=== PATIENT | male | born 1995 | race Caucasian/White ===

== ENCOUNTER 2018-11-05 18:48 | Emergency (ER) | payer BC, OTHER ==
[2018-11-05 19:11] VITALS: BP 115/65
--- NOTE | 2018-11-05 19:24 | UC ---
Headache HPI - HPI Summary HPI Summary: 6 days of muscle aches, neck pain/headache and fever. Fever started 3 days ago. POLLOCK is worse w/ certain movements. denies recent travel or sick contacts. did not notice a rash until he lifted his shirt during exam. able to eat/ drink fluids normally. NL urination per pt. 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 - History Of Current Complaint Chief Complaint: UCHeadache Stated Complaint: HEADACHE Time Seen by Provider: 11/05/18 18:56 Hx Obtained From: Patient Pain Intensity: 1 Pain Scale Used: 0-10 Numeric Character: Dull, Throbbing Location of Headache: Temporal Aggravating Factor(s): Position Change Allevating Factor(s): Nothing - Allergies/Home Medications Allergies/Adverse Reactions: Allergies Allergy/AdvReac Type Severity Reaction Status Date / Time No Known Allergies Allergy Unverified 11/05/18 19:14 PMH/Surg Hx/FS Hx/Imm Hx - Additional Past Medical History Additional PMH: no chronic conditions. Previously Healthy: Yes - Surgical History Surgical History: Yes Surgery Procedure, Year, and Place: Eye lid removal of benign cyst - Family History Known Family History: Positive: Non-Contributory - Social History Alcohol Use: None Substance Use Type: None Smoking Status (MU): Never Smoked Tobacco - Immunization History Most Recent Tetanus Shot: UTD Review of Systems All Other Systems Reviewed And Are Negative: Yes Constitutional: Positive: Fever. Negative: Chills Skin: Positive: Rash Eyes: Negative: Blurred Vision, Photophobia ENT: Negative: Sore Throat Respiratory: Positive: Negative Cardiovascular: Positive: Negative Gastrointestinal: Negative: Abdominal Pain, Vomiting, Diarrhea, Nausea Musculoskeletal: Positive: Myalgia Neurological: Positive: Headache. Negative: Weakness, Paresthesia, Numbness Physical Exam Triage Information Reviewed: Yes Appearance: Well-Appearing Vital Signs: Initial Vital Signs Temp 100.5 F 11/05/18 19:03 Pulse 70 11/05/18 19:03 Resp 16 11/05/18 19:03 BP 115/65 11/05/18 19:03 Pulse Ox 98 11/05/18 19:03 Vital Signs Reviewed: Yes Eyes: Positive: Conjunctiva Clear, Other: - PERRLA ENT: Positive: Pharynx normal, TMs normal, Uvula midline Dental: Negative: Cervical Lymphadenopathy Neck: Positive: Supple, Nontender, No Lymphadenopathy. Negative: Nuchal Rigidity Respiratory Exam: Normal Cardiovascular Exam: Normal Abdomen Description: Positive: Soft Musculoskeletal: Positive: No Edema Neurological: Positive: Alert, Other: - NEG BRUDZINKI'S, NEG KERNIG'S.. Negative: Fatigued Skin: Positive: Rashes - SCATTERED PATHCES OF HIVE-LIKE RASH, non pruritic. non blanching. Headache Course/Dx - Course Course Of Treatment: Presents w/ 3 days of fever and 6 days of muscle aches/pollock. With no travel or sick contacts. Aside from fever, good vitals, he is stable. Neg meningeal signs but we are monitoring this closely w/ low threshold to go to ED, we discussed this w/ mom and pt. 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 Will r/o other etiologies but at this point suspect lyme and will tx. Vision is good . - Differential Dx/Diagnosis Differential Diagnosis/HQI/PQRI: Tension Headache, Viral Syndrome, Other - lyme Provider Diagnosis: Febrile illness Discharge - Sign-Out/Discharge Documenting (check all that apply): Patient Departure All imaging exams completed and their final reports reviewed: No Studies - Discharge Plan Condition: Good Disposition: HOME Prescriptions: DOXYcycline CAP(*) [DOXYcycline 100MG CAP(*)] 100 mg PO BID 14 Days #27 cap Patient Education Materials: Fever in Adults (ED) Forms: *School Release, *Work Release Referrals: No Primary Care Phys,NOPCP [Primary Care Provider] - Additional Instructions: I will start you on the treatment for possible lyme, we will call if your results are positive. You do not have strep. Please keep your appt w/ your pcp for appropriate follow up and possible further work up. We discussed the red flags of when to go to the Emergency room and to have a low threshold. - Billing Disposition and Condition Condition: GOOD Disposition: Home - Attestation Statements Provider Attestation: Per institutional requirements, I have reviewed the chart, however, I was not consulted specifically or made aware of this patient by the midlevel provider. I did not personally evaluate, interact with , or disposition this patient.
[2018-11-05] MEDS ORDERED: DOXYcycline CAP(*) 100 MG PO ONE (19:35)
[2018-11-06 11:42] LABS: Hematocrit 40 % (42-52); Hemoglobin 14.5 g/dL (14.0-18.0); Mean Corpuscular HGB Conc 36 g/dL (31-36); Mean Corpuscular Hemoglobin 31 pg (27-31); Mean Corpuscular Volume 87 fL (80-94); Mean Platelet Volume 9.7 fL (7.4-10.4); Platelet Count 171 10^3/uL (150-450); Red Blood Count 4.67 10^6 /uL (4.18-5.48); Red Cell Distribution Width 12 % (10-15); White Blood Count 5.4 10^3/uL (3.5-10.8)
[2018-11-06 13:42] LABS: ABS Eosinophils 0.1 10^3/ul (0-0.6); ABS Lymphocytes 1.6 10^3/ul (1.0-4.8); ABS Monocytes 0.7 10^3/ul (0-0.8); Eosinophil % 1.4 %; Lymphocyte % 29.5 %; Nucleated Red Blood Cells % 0.1
--- NOTE | 2018-11-06 16:57 | UC ---
- Progress Note Progress Note: CBC with dif - wnk mono neg lyme screen + Pt on doxy await confirmatory testing ricky 11/06/18 Course/Dx - Diagnoses Provider Diagnoses: Febrile illness Discharge - Sign-Out/Discharge Documenting (check all that apply): Post-Discharge Follow Up All imaging exams completed and their final reports reviewed: No Studies - Discharge Plan Condition: Good Disposition: HOME Prescriptions: DOXYcycline CAP(*) [DOXYcycline 100MG CAP(*)] 100 mg PO BID 14 Days #27 cap Patient Education Materials: Fever in Adults (ED) Forms: *School Release, *Work Release Referrals: No Primary Care Phys,NOPCP [Primary Care Provider] - Additional Instructions: I will start you on the treatment for possible lyme, we will call if your results are positive. You do not have strep. Please keep your appt w/ your pcp for appropriate follow up and possible further work up. We discussed the red flags of when to go to the Emergency room and to have a low threshold. - Billing Disposition and Condition Condition: GOOD Disposition: Home
[2018-11-07 12:07] LABS: EBV Capsid Ag IgG Ab Positive (Negative); EBV Capsid Ag IgM Ab Positive (Negative); Epstein-Barr Nuclear Antigen Positive (Negative)
--- NOTE | 2018-11-07 14:13 | UC ---
- Progress Note Progress Note: Pt with positive IGG, IGM EBV + Ebv antigen pleae call pt - continue with doxy - awaiting confirmatory testing for lyme no contact sports until released by f/u (PCP, sports medicine) related to mono stay hydrated motrin/apap Course/Dx - Diagnoses Provider Diagnoses: Febrile illness Discharge - Sign-Out/Discharge Documenting (check all that apply): Post-Discharge Follow Up All imaging exams completed and their final reports reviewed: No Studies - Discharge Plan Condition: Good Disposition: HOME Prescriptions: DOXYcycline CAP(*) [DOXYcycline 100MG CAP(*)] 100 mg PO BID 14 Days #27 cap Patient Education Materials: Fever in Adults (ED) Forms: *School Release, *Work Release Referrals: No Primary Care Phys,NOPCP [Primary Care Provider] - Additional Instructions: I will start you on the treatment for possible lyme, we will call if your results are positive. You do not have strep. Please keep your appt w/ your pcp for appropriate follow up and possible further work up. We discussed the red flags of when to go to the Emergency room and to have a low threshold. - Billing Disposition and Condition Condition: GOOD Disposition: Home
== END 2018-11-05 20:02 | disposition home or self-care (01) ==
LOC: UCEAST 18:48
DX: R50.9 Fever, unspecified (principal)
CPT/HCPCS: 36415; 85025; 85060; 86308; 86617; 86618; 86664; 86665; 87651; 99202; A9270-GY; G0463

== ENCOUNTER 2019-05-18 04:16 | Emergency (ER) | payer OTHER ==
[2019-05-18] MEDS ORDERED: NS 0.9% 1000 ML** 1,000 ML IV ONE (04:23)
[2019-05-18] MEDS ORDERED: Ketorolac INJ* 30 MG/ML 1 ML VIAL IV ONE (04:23)
[2019-05-18] MEDS ORDERED: Ondansetron INJ* 2 MG/ML VIAL IV ONE (04:23)
--- OUTSIDE RECORDS SUMMARY | 2019-05-18 04:26 | XMS REPORT | Continuity of Care Document ---
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 Problems Active Problems Provider Date Viral disease Jim Rojas MD Onset: 11/11/2018 Infectious mononucleosis Jim Rojas MD Onset: 11/11/2018 Lyme disease Jim Rojas MD Onset: 11/11/2018 Social History Type Date Description Comments Sex Unknown ETOH Use Never used alcohol Tobacco Use Start: Unknown Light tobacco smoker (10 or fewer cigarettes/day) Smoking Status Reviewed: 05/10/19 Light tobacco smoker (10 or fewer cigarettes/day) Exercise Type/Frequency Exercises regularly Allergies, Adverse Reactions, Alerts Active Allergies Reaction Severity Comments Date NKDA 12/10/2013 Bees/Wasps Facial swelling Mild 05/10/2019 Medications Description No Active Medications Immunizations Description No Information Available Vital Signs Date Vital Result Comment 05/10/2019 9:58am Height 68 inches 5'8" Weight 138.25 lb Heart Rate 72 /min BP Systolic 126 mmHg BP Diastolic 64 mmHg Body Temperature 96.9 F O2 % BldC Oximetry 99 % BMI (Body Mass Index) 21.0 kg/m2 11/11/2018 11:03am Weight 136.00 lb Heart Rate 58 /min BP Systolic 118 mmHg BP Diastolic 68 mmHg Respiratory Rate 16 /min Body Temperature 98.5 F Results Test Acquired Date Facility Test Result H/L Range Note Lyme Disease AB 11/23/2018 [facility] IgG Immunoblot Negative Negative Immunoblot WB [address] [place], [place] [id number] [phone] IgG detected against p41,p23 kDa IgM Immunoblot Positive Abnormal Negative IgM detected against p41,p39,p23 kDa Lyme Disease Interpretation See Comment 1 HIV 4TH 11/23/2018 [facility] HIV 4th Negative Negative [place] [address] [place] [address] [phone] 1 Consistent with early infection with Borrelia burgdorferi. A new serum specimen should be submitted in 14-21 days to demonstrate seroconversion of IgG. IgM blot criteria is of diagnostic utility only during the first 4 weeks of early Lyme disease. ADDITIONAL INFORMATION Per CDC criteria, the Lyme IgG Immunoblot is interpreted as positive if IgG-class antibodies are detected to >=5 B. burgdorferi proteins, and the Lyme IgM Immunoblot is interpreted as positive if IgM-class antibodies are detected to >=2 B. burgdorferi proteins. Immunoblot patterns not meeting these criteria should not be interpreted as positive. Epitopes from certain B. burgdorferi proteins (e.g., p41) are conserved across other bacteria, which may lead to the detection of IgM- and/or IgG-class antibodies on the Lyme disease immunoblots in patients without Lyme disease. Immunoblot should only be ordered on specimens that are positive or equivocal by a FDA-licensed Lyme disease antibody screening test (e.g., EIA). Results of the Lyme IgM immunoblot should not be considered in patients with >= 30 days of symptoms. Test Performed by: [facility] [address] [place] [address] Procedures Description No Information Available Medical Devices Description No Information Available Encounters Type Date Location Provider Dx Diagnosis Office Visit 11/11/2018 [facility] Jim Rojas MD A69.20 Lyme disease, 10:40a Medicine - Suite unspecified R B27.90 Infectious mononucleosis, unspecified without complication Z11.4 Encounter for screening for human immunodeficiency virus Assessments Date Code Description Provider 05/10/2019 Z00.00 Encounter for general adult medical examination Jim Rojas MD without abnormal findings 05/10/2019 R35.0 Frequency of micturition Jim Rojas MD 05/10/2019 Z23 Encounter for immunization Jim Rojas MD 11/11/2018 A69.20 Lyme disease, unspecified Jim Rojas MD 11/11/2018 B27.90 Infectious mononucleosis, unspecified without Jim Rojas MD complication 11/11/2018 Z11.4 Encounter for screening for human immunodeficiency Jim Rojas MD virus [Hi Plan of Treatment 05/10/2019 - Jim Rojas MDZ00.00 Encounter for general adult medical examination without abnormal findingsComments:We will check some labwork as your liver function tests and sugar have been a bit high in 2013.R35.0 Frequency of [id number] Encounter for immunizationImmunizations/Injections: Influenza Virus Vaccine, Quadrivalent, Split, Preservative Free Functional Status Description No Information Available Mental Status Description No Information Available Referrals Description No Information Available
--- NOTE | 2019-05-18 04:32 | ED ---
GI/ HPI - HPI Summary HPI Summary: 24 y/o male presented to [facility] complaining of generalized sickness that began yesterday when he felt "off" at work with abd pain (11/25). The patient came home , ate, and went to bed but began vomiting at 0130 05/18/19. Vomiting has recurred roughly every 30min. Patient also notes abdominal pain, but no diarrhea and has urinated since onset of symptoms. He notes contact with a sick friend in the past few days. No abd PSHx, and a FHx of cancer. He has smoked marijuana prior to symptoms beginning. He has also used cocaine recently. - History of Current Complaint Chief Complaint: EDGeneral Stated Complaint: SICK PER PT Hx Obtained From: Patient Onset/Duration: Started Hours Ago Timing: Intermittent Current Severity: Severe Pain Intensity: 7 Associated Signs and Symptoms: Positive: Nausea, Vomiting. Negative: Diarrhea, Other: - decreased urination Alleviating Factor(s): Nothing - Allergy/Home Medications Allergies/Adverse Reactions: Allergies Allergy/AdvReac Type Severity Reaction Status Date / Time bee venom protein (honey bee) Allergy Swelling Verified 05/18/19 04:20 Home Medications: Home Medications NK [No Home Medications Reported] 05/18/19 [History Confirmed 05/18/19] PMH/Surg Hx/FS Hx/Imm Hx Endocrine/Hematology History: Denies: Hx Diabetes, Hx Thyroid Disease Cardiovascular History: Denies: Hx Hypertension Respiratory History: Denies: Hx Asthma, Hx Chronic Obstructive Pulmonary Disease (COPD) GI History: Denies: Hx Ulcer - Surgical History Surgical History: Yes Surgery Procedure, Year, and Place: Eye lid removal of benign cyst Infectious Disease History: No Infectious Disease History: Denies: Hx Hepatitis, Hx Human Immunodeficiency Virus (HIV), History Other Infectious Disease, Traveled Outside the [place] in Last 30 Days - Family History Known Family History: Negative: Cardiac Disease, Hypertension - Social History Alcohol Use: None Hx Substance Use: No Substance Use Type: Reports: None Hx Tobacco Use: No Smoking Status (MU): Never Smoked Tobacco Review of Systems Positive: Abdominal Pain, Vomiting, Nausea. Negative: Diarrhea Negative: frequency - decreased All Other Systems Reviewed And Are Negative: Yes Physical Exam - Summary Physical Exam Summary: Constitutional: Well-developed, Well-nourished, Alert. (-) Distressed Skin: Warm, Dry HENT: Normocephalic; Atraumatic Eyes: Conjunctiva normal Neck: Musculoskeletal ROM normal neck. (-) JVD, (-) Stridor, (-) Nuchal rigidity Cardio: Rhythm regular, rate normal, Heart sounds normal; Intact distal pulses; Radial pulses are 2+ and symmetric. (-) Murmur Pulmonary/Chest wall: Effort normal. (-) Respiratory distress, (-) Wheezes, (-) Rales Abd: Soft, (-) tenderness, (-) Distension, (-) Guarding, (-) Rebound Musculoskeletal: (-) Edema Lymph: (-) Cervical adenopathy Neuro: Alert, Oriented x3 Psych: Mood and affect Normal Triage Information Reviewed: Yes Vital Signs On Initial Exam: Initial Vitals Temp Pulse Resp BP Pulse Ox 99.6 F 100 16 138/83 95 05/18/19 04:17 05/18/19 04:17 05/18/19 04:17 05/18/19 04:17 05/18/19 04:17 Vital Signs Reviewed: Yes Procedures - Sedation Patient Received Moderate/Deep Sedation with Procedure: No Diagnostics - Vital Signs Vital Signs Temp Pulse Resp BP Pulse Ox 05/18/19 04:17 99.6 F 100 16 138/83 95 - Laboratory Result Diagrams: 05/18/19 04:35 05/18/19 04:35 Lab Statement: Any lab studies that have been ordered have been reviewed, and results considered in the medical decision making process. Re-Evaluation - Re-Evaluation First Eval Re-Evaluation Time: 05:20 Change: Improved - PO challenged. Feeling better. labs notable for normal WBC. GIGU Course/Dx - Course Course Of Treatment: 24-year-old male who presents acute nausea vomiting. DDx includes gastric enteritis, lower suspicion for appendicitis, GERD, renal stone , Cholecystitis, SBO, testicular torsion. Exam relatively unremarkable today, no rigidity or suggestions of acute surgical abd. Pt with negative Jaime's on exam. Will obtain cbc to assess for underlying infection. Denies testicular pain , low suspicion for pathology Will continue to monitor. Labs notable for normal WBC, tolerating PO. Suspect 2/2 marijuana use vs early gastroenterititis , lower suspicion for appendicitis given soft abdomen and no RLQ tenderness. - Diagnoses Provider Diagnoses: Nausea & vomiting Discharge ED - Sign-Out/Discharge Documenting (check all that apply): Patient Departure - dc - Discharge Plan Condition: Stable Disposition: HOME Patient Education Materials: Acute Nausea and Vomiting (ED) Referrals: Jim Rojas MD [Primary Care Provider] - Additional Instructions: You were seen in the emergency department for nausea vomiting. Please take Zofran as needed every 8 hours. Please take lots of fluids. If any studies were not completed at the time of discharge you will be called with the relevant results. Please follow up with your primary care doctor in next 2-3 days and return to emergency department for abdominal pain, inability to eat or drink, worsening or concerning symptoms. It was a pleasure taking care of you today. - Billing Disposition and Condition Condition: STABLE Disposition: Home - Attestation Statements Document Initiated by Stephanie: Yes Documenting Nomiibe: Melania Naranjo Provider For Whom Stephanie is Documenting (Include Credential): Dr. Antoinette Fritz MD Scribe Attestation: Melania Scott scribed for Dr. Antoinette Fritz MD on 05/18/19 at 0550. Scribe Documentation Reviewed: Yes Provider Attestation: The documentation as recorded by the Melania hayden accurately reflects the service I personally performed and the decisions made by me, Dr. Antoinette Fritz MD Status of Scribe Document: Viewed
[2019-05-18 04:52] LABS: ABS Eosinophils 0.1 10^3/ul (0-0.6); ABS Lymphocytes 0.3 10^3/ul (1.0-4.8); ABS Monocytes 0.4 10^3/ul (0-0.8); Eosinophil % 0.7 %; Hematocrit 47 % (42-52); Hemoglobin 16.8 g/dL (14.0-18.0); Lymphocyte % 2.8 %; Mean Corpuscular HGB Conc 36 g/dL (31-36); Mean Corpuscular Hemoglobin 31 pg (27-31); Mean Corpuscular Volume 88 fL (80-94); Mean Platelet Volume 8.8 fL (7.4-10.4); Nucleated Red Blood Cells % 0.1; Platelet Count 149 10^3/uL (150-450); Red Blood Count 5.37 10^6 /uL (4.18-5.48); Red Cell Distribution Width 13 % (10-15); White Blood Count 9.8 10^3/uL (3.5-10.8)
[2019-05-18 04:59] LABS: Albumin 4.7 g/dL (3.2-5.2); Albumin/Globulin Ratio 1.8 (1-3); BUN/Creatinine Ratio 21.9 (8-20); Calcium 9.7 mg/dL (8.6-10.3); EGFR African American 106.9 (>60); EGFR Non-African American 88.3 (>60); Globulin 2.6 g/dL (2-4); Potassium 3.9 mmol/L (3.5-5.0); Total Bilirubin 1.6 mg/dL (0.2-1.0); Total Protein 7.3 g/dL (6.4-8.9)
[2019-05-18] MEDS ORDERED: Ondansetron ODT TAB* 4 MG PO ONE (05:07)
[2019-05-18 06:04] VITALS: BP 111/56
== END 2019-05-18 06:02 | disposition home or self-care (01) ==
LOC: ED 04:16
DX: R11.2 Nausea with vomiting, unspecified (principal)
CPT/HCPCS: 36415; 80053; 85025; 96361; 96374; 96375; 99283; A9270-GY; J1885; J2405

== ENCOUNTER 2019-06-30 05:26 | Emergency (ER) | payer OTHER ==
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
[2019-06-30 06:12] LABS: Urine Appearance Clear; Urine Bilirubin Negative (Negative); Urine Blood Negative (Negative); Urine Color Colorless; Urine Glucose Negative (Negative); Urine Ketones Negative (Negative); Urine Nitrite Negative (Negative); Urine Protein Negative (Negative); Urine Specific Gravity 1.001 (1.010-1.030); Urine Urobilinogen Negative (Negative)
[2019-06-30 06:20] LABS: ABS Lymphocytes 1.5 10^3/ul (1.0-4.8); ABS Monocytes 0.3 10^3/ul (0-0.8); ABS Neutrophils 2.8 10^3/ul (1.5-7.7); Eosinophil % 0.8 %; Hematocrit 48 % (42-52); Hemoglobin 17.3 g/dL (14.0-18.0); Lymphocyte % 32.2 %; Mean Corpuscular HGB Conc 36 g/dL (31-36); Mean Corpuscular Hemoglobin 32 pg (27-31); Mean Corpuscular Volume 87 fL (80-94); Mean Platelet Volume 8.7 fL (7.4-10.4); Nucleated Red Blood Cells % 0.1; Platelet Count 209 10^3/uL (150-450); Red Blood Count 5.44 10^6 /uL (4.18-5.48); Red Cell Distribution Width 12 % (10-15); White Blood Count 4.7 10^3/uL (3.5-10.8)
[2019-06-30 06:31] LABS: ALT 27 U/L (7-52); AST 23 U/L (13-39); Albumin 5.2 g/dL (3.2-5.2); Albumin/Globulin Ratio 1.9 (1-3); Alkaline Phosphatase 85 U/L (34-104); Anion Gap 10 mmol/L (2-11); BUN/Creatinine Ratio 10.3 (8-20); Blood Urea Nitrogen 10 mg/dL (6-24); CO2 Carbon Dioxide 26 mmol/L (22-32); Calcium 9.7 mg/dL (8.6-10.3); Chloride 106 mmol/L (101-111); EGFR African American 117.1 (>60); EGFR Non-African American 96.8 (>60); Globulin 2.7 g/dL (2-4); Glucose 92 mg/dL (70-100); Potassium 3.9 mmol/L (3.5-5.0); Sodium 142 mmol/L (135-145); Total Protein 7.9 g/dL (6.4-8.9)
[2019-06-30 06:35] LABS: Urine Benzodiazepine Screen None Detected (None Detect); Urine Opiates Screen None Detected (None Detect)
[2019-06-30 06:43] LABS: Acetaminophen < 15 mcg/mL; Alcohol 177 mg/dL (<10); Salicylate < 2.50 mg/dL (<30)
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
--- OUTSIDE RECORDS SUMMARY | 2019-06-30 08:58 | XMS REPORT | Continuity of Care Document ---
:1995 External Reference #:[id number] Author Name Jim Rojas MD (transmitted by agent of provider Cara Dove) Address [address] [place] [id number] Care Team Providers Name Role Phone Jim Rojas MD - Hospitalist Care Team Information Department Head [phone] Problems Active Problems Provider Date Dysuria Jim Rojas MD Onset: 06/07/2019 Nausea and vomiting Jim Rojas MD Onset: 06/07/2019 Abdominal pain Jim Rojas MD Onset: 06/07/2019 Venereal disease screening Jim Rojas MD Onset: 06/07/2019 Suspected diabetes mellitus Jim Rojas MD Onset: 05/10/2019 Immunization Jim Rojas MD Onset: 05/10/2019 Adult health examination Jim Rojas MD Onset: 05/10/2019 Viral disease Jim Rojas MD Onset: 11/11/2018 Infectious mononucleosis Jim Rojas MD Onset: 11/11/2018 Lyme disease Jim Rojas MD Onset: 11/11/2018 Social History Type Date Description Comments Sex Unknown ETOH Use Never used alcohol Tobacco Use Start: Unknown Light tobacco smoker (10 or fewer cigarettes/day) Smoking Status Reviewed: 06/07/19 Light tobacco smoker (10 or fewer cigarettes/day) Exercise Type/Frequency Exercises regularly Allergies, Adverse Reactions, Alerts Active Allergies Reaction Severity Comments Date NKDA 12/10/2013 Bees/Wasps Facial swelling Mild 05/10/2019 Medications Active Medications SIG Qnty Indications Ordering Provider Date Tylenol 8 Hour take every 6 hours Unknown 650mg as needed for Tablets ER pain, headache or fever History Medications No Active Medications Unknown 05/10/2019 - 06/07/2019 Immunizations CPT Code Status Date Vaccine Lot # [id number] Given 06/07/2019 Influenza Virus Vaccine, Quadrivalent, Split, [id number] Preservative Free Vital Signs Date Vital Result Comment 06/07/2019 10:11am Height 68 inches 5'8" Weight 137.38 lb Heart Rate 60 /min BP Systolic 100 mmHg BP Diastolic 50 mmHg Body Temperature 97.2 F O2 % BldC Oximetry 98 % BMI (Body Mass Index) 20.9 kg/m2 05/10/2019 9:58am Height 68 inches 5'8" Weight 138.25 lb Heart Rate 72 /min BP Systolic 126 mmHg BP Diastolic 64 mmHg Body Temperature 96.9 F O2 % BldC Oximetry 99 % BMI (Body Mass Index) 21.0 kg/m2 Results Test Acquired Date Facility Test Result H/L Range Note Comp Metabolic 05/18/2019 [facility] Sodium 137 mmol/L Normal 135-[address] [place] [address] [phone] Potassium 3.9 mmol/L Normal 3.5-5.0 Chloride 102 mmol/L Normal 101-111 Co2 Carbon Dioxide 25 mmol/L Normal 22-32 Anion Gap 10 mmol/L Normal 2-11 Glucose 100 mg/dL Normal 70-100 Blood Urea Nitrogen 23 mg/dL Normal 6-24 Creatinine 1.05 mg/dL Normal 0.67-1.17 BUN/Creatinine Ratio 21.9 High 8-20 Calcium 9.7 mg/dL Normal 8.6-10.3 Total Protein 7.3 g/dL Normal 6.4-8.9 Albumin 4.7 g/dL Normal 3.2-5.2 Globulin 2.6 g/dL Normal 2-4 Albumin/Globulin Ratio 1.8 Normal 1-3 Total Bilirubin 1.60 mg/dL High 0.2-1.0 Alkaline Phosphatase 76 U/L Normal 34-104 Alt 11 U/L Normal 7-52 Ast 18 U/L Normal 13-39 Egfr Non- 88.3 >60 Egfr 106.9 >60 1 CBC Auto 05/18/2019 [facility] White Blood 9.8 10^3/uL Normal 3.5-10.[address] [place] [address] [phone] Red Blood Count 5.37 10^6/uL Normal 4.18-5.48 Hemoglobin 16.8 g/dL Normal 14.0-18.0 Hematocrit 47 % Normal 42-52 Mean Corpuscular Volume 88 fL Normal 80-94 Mean Corpuscular Hemoglobin 31 pg Normal 27-31 Mean Corpuscular HGB Conc 36 g/dL Normal 31-36 Red Cell Distribution Width 13 % Normal 10-15 Platelet Count 149 10^3/uL Low 150-450 Mean Platelet Volume 8.8 fL Normal 7.4-10.4 Abs Neutrophils 9.0 10^3/uL High 1.5-7.7 Abs Lymphocytes 0.3 10^3/uL Low 1.0-4.8 Abs Monocytes 0.4 10^3/uL Normal 0-0.8 Abs Eosinophils 0.1 10^3/uL Normal 0-0.6 Abs Basophils 0.0 10^3/uL Normal 0-0.2 Abs Nucleated RBC 0.0 10^3/uL Granulocyte % 91.9 % Lymphocyte % 2.8 % Monocyte % 4.5 % Eosinophil % 0.7 % Basophil % 0.1 % Nucleated Red Blood Cells % 0.1 1 Because ethnic data is not always readily available, this report includes an eGFR for both -Americans and non- Americans. The National Kidney Disease Education Program (NKDEP) does not endorse the use of the MDRD equation for patients that are not between the ages of 18 and 70, are , have extremes of body size, muscle mass, or nutritional status, or are non- or non-. According to the National Kidney Foundation, irrespective of diagnosis, the stage of the disease is based on the level of kidney function: Stage Description GFR(mL/min/1.73 m(2)) 1 Kidney damage with normal or decreased GFR 90 2 Kidney damage with mild decrease in GFR 60-89 3 Moderate decrease in GFR 30-59 4 Severe decrease in GFR 15-29 5 Kidney failure <15 (or dialysis) Procedures Description No Information Available Medical Devices Description No Information Available Encounters Type Date Location Provider Dx Diagnosis Office Visit 05/10/2019 [facility] Internal Jim Rojas MD Z00.00 Encntr for general 9:40a Medicine - Suite R adult medical exam w/o abnormal findings Z23 Encounter for immunization Z13.1 Encounter for screening for diabetes mellitus Assessments Date Code Description Provider 06/07/2019 Z11.3 Encounter for screening for infections with a Jim Rojas MD predominantly sexual mode of transmission 06/07/2019 R30.0 Dysuria Jim Rojas MD 06/07/2019 R10.9 Unspecified abdominal pain Jim Rojas MD 06/07/2019 R11.2 Nausea with vomiting, unspecified Jim Rojas MD 06/07/2019 Z13.1 Encounter for screening for diabetes mellitus Jim Rojas MD 06/07/2019 Z23 Encounter for immunization Jim Rojas MD 05/10/2019 Z00.00 Encounter for general adult medical examination Jim Rojsa MD without abnormal findings 05/10/2019 Z23 Encounter for immunization Jim Rojas MD 05/10/2019 Z13.1 Encounter for screening for diabetes mellitus Jim Rojas MD Plan of Treatment 06/07/2019 - Jim Rojas MDZ11.3 Encounter for screening for infections with a predominantly sexual mode of transmissionNew Labs:Syphillis Igg W/Reflex RPR, Ordered: 06/07/19GC/Chlamydia Amplified Rna, Ordered: 06/07/19Comments:Given your occasional burning after urination and occasional unprotected sexual intercourse, we willget further STD testing and a urine sample. Always use barrier protection with for example condoms.Follow up:1 yearR30.0 DysuriaNew Labs:Urinalysis Profile, Ordered: 06/07/19R10.9 Unspecified abdominal painComments:resolved since ED.R11.2 Nausea with vomiting, unspecifiedComments: resolved since ED.Z13.1 Encounter for screening for diabetes mellitusNew Labs: Hemoglobin A1c (Glyco HGB), Ordered: 06/07/19Z23 Encounter for immunization Functional Status Description No Information Available Mental Status Description No Information Available Referrals Description No Information Available
[2019-06-30 09:43] VITALS: BP 122/70
== END 2019-06-30 09:21 | disposition home or self-care (01) ==
LOC: ED 05:26
DX: F10.929 Alcohol use, unspecified with intoxication, unspecified (principal); V49.40XA Driver injured in collision with unspecified motor vehicles in traffic accident, initial encounter; Y92.410 Unspecified street and highway as the place of occurrence of the external cause
CPT/HCPCS: 36415; 80053; 80307; 80320; 80329; 81003; 83605; 85025; 99282; G0480